=== PATIENT | female | born 1995 | race Caucasian/White ===

== ENCOUNTER 2019-01-17 00:51 | Inpatient (IN) | payer OTHER ==
[~2019-01-17] VITALS: Ht 157.5 cm; Wt 52.2 kg
[~2019-01-17 00:51] MED LIST: CLINDAMYCIN300 M1 PO; KEFLEX250 MG; LAC PO; MOTRIN100 MG/5 M
[2019-01-17 00:54] VITALS: Ht 157.5 cm; Wt 52.2 kg
--- NOTE | 2019-01-17 01:02 | NUR ---
PT AMBULATED TO THE RESTROOM WITH A STEADY GAIT TO PROVIDE A URINE SAMPLE
--- NOTE | 2019-01-17 01:20 | NUR ---
PT PRESENTED TO THE ED WITH C/O LOWER QUADRANT ABD PAIN RATED 8/10 X4 DAYS. PT STS, " I AM 6 WEEKS . I HAVE AN OVARIAN CYST ON THE RIGHT SIDE". PT C/O NAUSEA AND NON-BLOODY EMESIS EPISODES. PT'S LAST MENSTRUAL PERIOD WAS ON DECEMBER 13. DENIES ANY VAGINAL BLEEDING. PT DENIES TAKING ANY PAIN MEDICATIONS AT HOME. PT STS, " THIS IS MY 6TH . I HAVE 3 CHILDREN AND I HAD 1 ".
--- NOTE | 2019-01-17 01:33 | NUR ---
LINESPERSON AT BEDSIDE FOR BLOOD DRAW
[2019-01-17 01:44] LABS: microscopic required? NO
[2019-01-17 01:50] LABS: UA SPECIFIC GRAVITY 1.015 (1.005-1.035); urine erythrocyte NEGATIVE (NEGATIVE)
[2019-01-17 01:53] LABS: BASOPHIL % 0.6 % (0-2); PLATELET COUNT 296 x10^3mcL (130-400)
[2019-01-17 01:56] LABS: RED CELL DISTRIBUTION WIDTH 21.2 % (11.5-14.5)
--- NOTE | 2019-01-17 02:11 | NUR ---
ULTRASOUND IN PROGRESS
[2019-01-17 02:16] LABS: rbc morphology (normal/abnorm) ABNORMAL (NORMAL)
--- NOTE | 2019-01-17 02:59 | NUR ---
PT C/O ABD PAIN RATED 10/10. DR. GABRIEL MADE AWARE.
--- NOTE | 2019-01-17 03:02 | NUR ---
PT MADE AWARE OF POSSIBLE SIDE EFFECTS IN TAKING MORPHINE WHILE BEING INCLUDING THE POSSIBILITY OF CHILD DEFECTS. PT VERBALIZED UNDERSTANDING. STS, " I DON'T CARE. IT HURTS TOO MUCH".
--- NOTE | 2019-01-17 03:08 | NUR ---
PT REFUSING THE MORPHINE AT THIS TIME. STS, "HE DOESN'T WANT ME TO TAKE IT" WHILE NODDING HEAD TOWARDS SIGNIFICANT OTHER. PT MADE AWARE IT WAS HER DECISION TO TAKE OR NOT TO TAKE THE PAIN MEDICATION. PT REFUSING. DR. GABRIEL MADE AWARE.
--- NOTE | 2019-01-17 03:49 | NUR ---
PT VERBALIZED UNDERSTANDING OF RISK IN TAKING MORPHINE WHILE BEING . PT IN AGREEMENT ONCE AGAIN. PT MEDICATED PER EMAR. WILL CONT TO MONITOR.
[2019-01-17 04:23] LABS: CALCIUM 8.1 mg/dL (8.5-10.1); CARBON DIOXIDE 23.1 mmol/L (21-32); CHLORIDE SERUM 106 mmol/L (98-107); CREATININE SERUM 0.7 mg/dL (0.6-1.0); GFR1 > 60 mL/min; GLUCOSE SERUM 92 mg/dL (74-106); POTASSIUM SERUM 3.6 mmol/L (3.5-5.1); SODIUM SERUM 141 mmol/L (136-145)
[2019-01-17 04:28] LABS: ALBUMIN 3.5 g/dL (3.4-5.0); ALKALINE PHOSPHATASE 67 U/L (46-116); ALT/SGPT 14 U/L (14-59); AST/SGOT 11 U/L (15-37); TOTAL PROTEIN, SERUM 7.1 g/dL (6.4-8.2)
--- NOTE | 2019-01-17 04:35 | NUR ---
PT STS, " MY PAIN HAS DECREASED". PT CONNECTED TO FULL VP SITE. BREATHING IS E/U ON RA WITH NO S/S OF ACUTE DISTRESS NOTED. WILL CONT TO MONITOR
--- NOTE | 2019-01-17 05:41 | NUR ---
REPORT GIVEN TO MONICA PALOMO. ALL QUESTIONS/CONCERNS ADDRESSED
--- NOTE | 2019-01-17 06:27 | NUR ---
RECEIVED PT FROM ED. PT DROWSY, AOX4. MED SURG PT. DENIES CP/PRESSURE. NO SOB/DIFFICULTY BREATHING NOTED. IV TO DANA, INTACT AND PATENT. BED IN LOWEST POSITION. CALL LIGHT WITHIN REACH. WILL CONTINUE TO MONITOR.
[2019-01-17 06:29] VITALS: BP 86/33
--- NOTE | 2019-01-17 06:40 | NUR ---
DR. SNYDER PAGED FOR ORDERS. WILL ENDORSE CARE TO ONCOMING SHIFT NURSE.
--- NOTE | 2019-01-17 07:10 | NUR ---
RECEIVED REPORT FROM QING RN, PT IN BED IN NO ACUTE DISTRESS
--- NOTE | 2019-01-17 07:15 | NUR ---
PT IN BED, AT BEDSIDE, VERBAL, AXOX4, ABLE TO MAKE NEEDS KNOWN, CALM AND COOPERATIVE, PERRLA, NO REDNESS/DRAINAGE, RESP EVEN, NO COUGH/SOB, DENIED CP/PRESSURE/ARREDONDO, DENIED N/V/D, CHEST RISE SYMMETRICALY, ABD FLAT AND TENDER TO TOUCH, REPORTED ABD DISCOMFORT WHEN PALPATE, BS HYPOACTVE X 4, PALP PUSES, CAP REFILL < 3S, IV PATENT, NO INFILTRATION NOTED, AMBULATORY, CONTINENT, ALL NEEDS ADDRESSED AT THIS TIME, SAFETY PROTOCOL FOLLOWED, CONTINUE TO MONITOR
--- NOTE | 2019-01-17 08:12 | NUR ---
SEEN BY BOND MANAGER YAZMIN, QUESTION ASKED AND ANSWERED, NO FURTHER CONCERNS NEEDED AT THIS TIME, PT IN NO ACUTE DISTRESS
--- NOTE | 2019-01-17 09:29 | NUR ---
SEEN BY DR. SNYDER, QUESTIONS ASKED AND ANSWERED, NO FURTHER CONCERNS NEEDED AT THIS TIME, PT IN BED W/ NO ACUTE DISTRESS
[2019-01-17 09:31] VITALS: BP 98/37
[2019-01-17 09:39] VITALS: BP 98/37
--- NOTE | 2019-01-17 10:45 | NUR ---
CALL LITHOGRAPH PRESS FEEDER BRIANDA ARCE R/T METHOTREXATE DOSE STRENGTH, PER PHARMACIST, 150MG IS TOO STRONG COMPARED TO PT'S HEIGHT/WEIGHT AND BSA, DR ARCE MADE AWARE AND ORDER TO D/C METHOTREXATE 150MG, ORDER METHOTREXATE 100MG IM ONCE, TELEPHONE ORDER READ BACK PER POLICY, AWAITING FOR PHARMACIST VERIFICATION, CHARGE NURSE MANUEL MADE AWARE
--- NOTE | 2019-01-17 11:36 | NUR ---
PER NURSE SAWMILL OR TIMBER YARD WORKER SHERRI, PER HOSPITAL POLICY, METHOTREXATE CANNOT BE GIVEN IN THE [facility] SETTING FOR REGULAR TERMINATION, CALLED BALLING HEAD TENDER YAZMIN R/T HOSPITAL POLICY R/T METHOTREXATE, PER DR ARCE, D/C METHOTREXATE AND F/U W/ DR ARCE IN HIS OFFICE ON Sunday01/21/19 D/T SUNDAY IS HOLIDAY, PT MADE AWARE, CHARGE NURSE MANUEL MADE AWARE
--- NOTE | 2019-01-17 12:49 | NUR ---
DC PAPER SIGNED AND KEPT IN CHART, EDUCATION R/T ECTOPIC GIVEN, NO FURTHER CONCERNS NEEDED WHEN ASKED, IV REMOVED, IV CATH TIP INTACT, NO ACTIVE BLEEDING NOTED, PT HAD LUNCH, PT IN NO ACUTE DISTRESS, PT ASSISTED TO LOBBY BY NURSING STAFFS, P/U PT HOME
== END 2019-01-17 12:41 | disposition home or self-care (01) | DRG 545 ==
LOC: ED 00:51 → MU 05:25
PROVIDERS: Emergency Medicine; ADMIT Internal Medicine Pulmonary Disease
PROC: 10D27ZZ Extraction of Products of Conception, Ectopic, Via Natural or Artificial Opening (ICD-10-PCS; principal; 2019-01-17)
DX: O00.90 Unspecified ectopic pregnancy without intrauterine pregnancy (principal); Z90.49 Acquired absence of other specified parts of digestive tract; Z90.5 Acquired absence of kidney
CPT/HCPCS: G0378; J2270; J7030; Q0092